=== PATIENT | female | born 1990 | race Caucasian/White ===

== ENCOUNTER 2019-03-09 11:46 | Inpatient (IN) | payer MEDICAID ==
[~2019-03-09 11:46] MED LIST: PRENAT PO
[2019-03-09] MEDS ORDERED: CARBOPROST 250 MCG INJ IM PRN ×2 (12:30→13:30)
[2019-03-09] MEDS ORDERED: LIDOCAINE 1% (MPF) 30 ML INJ INJ PRN (12:30)
[2019-03-09] MEDS ORDERED: OXYTOCIN 30 UNITS/LR 500 ML IV PRN ×2 (12:30→13:30)
[2019-03-09] MEDS ORDERED: OXYTOCIN 30 UNITS/LR 500 ML IV SCH ×3 (12:30→13:17)
[2019-03-09] MEDS ORDERED: METHYLERGONOVINE 0.2 MG INJ IM PRN (12:30)
[2019-03-09] MEDS ORDERED: AMPICILLIN 2 GM/NS (PMX) 100 ML IV ONE (12:30)
[2019-03-09] MEDS ORDERED: MISOPROSTOL 200 MCG TAB PR PRN ×2 (12:30→13:30)
[2019-03-09] MEDS ORDERED: LACTATED RINGER'S 1,000 ML IV SCH (13:00)
--- NOTE | 2019-03-09 13:14 | HP ---
Date/Time of Note Date/Time of Note DATE: 03/09/19 TIME: 13:11 OB - History Hx of Present Free Text/Dictation March 09, 2019 Estimated Due Date: Mar 14, 2019 : 5 Para: 4 Care: Good Care Other Concerns: 28-year-old G5, P4 with IUP at 39 weeks and 1 day and care with [facility] presented in active labor. She was 5 cm dilated/90%/-1 vertex presentation. records were not available. Only labs were available. GBS was negative. She was admitted for management of labor. Past Family/Social History * Past Medical, Surgical, Family and Obstetric Histories reviewed from chart. Blood Type: A+ Rubella: immune RPR/VDRL: Negative GBS Status: Negative HBsAG: Negative OB Admission Exam Physical Exam HEENT: WNL Lungs: Clear Abdomen: WNL Extremities: Normal Cervical Dilatation: 5cm Effacement: 100% Station: -1 Amniotic Fluid: Clear Heart Rate: 130's Accelerations: Accelerations Present Decelerations: No Decelerations Varibility: Moderate Contractions on Admission: < 5 Minutes Apart Intensity: Moderate Last 72 hours Lab Results CBC & BMP 03/09/19 12:15 OB Assessment/Plan Reason for admission: active labor Other Assessment: IUP at 39 weeks and 1 day Active labor GBS negative Admit the patient to labor and delivery Epidural if she requires for pain management Anticipate YANET MORALES MD Mar 09, 2019 13:14
--- NOTE | 2019-03-09 13:17 | LDN ---
Date/Time of Note Date/Time of Note DATE: 03/09/19 TIME: 13:14 Delivery Summary March 09, 2019 Weeks of Gestation 39 weeks and 2 days Placenta Delivered: Spontaneously Meconium: Thick Episiotomy: No Indication for episiotomy N/AA Perineal laceration: 1 Laceration repair: First-degree perineal laceration as well as first-degree laceration superficial at the area of frenulum of clitoris noted. Perineal laceration had some oozing and repaired using 3-0 chromic with one [id number] suture. Laceration and first-degree superficial frenulum of the clitoris was not bleeding and did not require any suturing. Anesthesia type: Local Estimated blood loss: 200 Sponge & Needle done & correct: Yes Any foreign bodies felt in the: No Delivery Information Sex Sex: female Apgars 1 Minute: 9 5 Minute: 9 Suctioning Nose & mouth suctioned at lissett: Yes Delee suction performed: Yes Umbilical Cord Umbilical cord with: 3 Vessels Cord presentations: no nuchal cord Cord Blood was obtained: Yes Mother & Baby Disposition Disposition Placenta delivered intact and complete. Three-vessel cord noted. Fundus was firm at the end of the delivery. First-degree perineal laceration and first- degree superficial laceration at the level of frenulum uppercase was noted that was not bleeding. Perineal laceration repaired using 3-0 suture 1 [id number] ght. Hemostasis was complete. 2+ meconium noted at the time of delivery. Immediately after delivery of the head nose and mouth were suction. Baby was handed to the nursing staff after the second of delivery. YANET NEVAREZ MD Mar 09, 2019 13:17
[2019-03-09] MEDS ORDERED: HYDROCODONE/APAP (5/325) TAB PO PRN (13:30)
[2019-03-09] MEDS ORDERED: morphine 2 MG INJ IV PRN (13:30)
[2019-03-09] MEDS ORDERED: DIPHENHYDRAMINE 25 MG CAP PO PRN (13:30)
[2019-03-09] MEDS ORDERED: ZOLPIDEM 5 MG TAB PO PRN (13:30)
[2019-03-09] MEDS ORDERED: NACL 0.9% 3 ML SYG IV SCH (13:30)
[2019-03-09] MEDS ORDERED: ONDANSETRON 4 MG INJ IV PRN (13:30)
[2019-03-09 14:40] VITALS: BP 107/71; PULSE 60; RESP 17
[2019-03-09] MEDS ORDERED: AMPICILLIN 1 GM/NS (PMX) 50 ML IV SCH (16:30)
[2019-03-09] MEDS: LANOLIN HPA 1 PKT TOP PRN (17:40)
[2019-03-09] MEDS: WITCH HAZEL/GLYCERIN PAD PR PRN (17:40)
[2019-03-09] MEDS: IBUPROFEN 600 MG TAB PO SCH ×2 (17:40→23:30)
[2019-03-09 20:10] VITALS: BP 101/55; PULSE 65; RESP 18
[2019-03-09] MEDS: SENNA/DOCUSATE NA (8.6MG/50MG) TAB PO SCH (22:06)
[2019-03-10 00:40] VITALS: BP 100/56; PULSE 70; RESP 18
[2019-03-10 04:00] VITALS: BP 97/55; PULSE 60; RESP 18
[2019-03-10] MEDS: IBUPROFEN 600 MG TAB PO SCH ×4 (05:52→23:33)
[2019-03-10 09:00] VITALS: BP 108/62; PULSE 59; RESP 16
[2019-03-10] MEDS: PRENATAL VITAMIN PO SCH (10:01)
[2019-03-10] MEDS: SENNA/DOCUSATE NA (8.6MG/50MG) TAB PO SCH ×2 (10:01→21:05)
[2019-03-10 16:30] VITALS: BP 118/74; PULSE 65; RESP 18
[2019-03-10 20:00] VITALS: BP 112/76; PULSE 82; RESP 19
[2019-03-11 03:40] VITALS: BP 97/57; PULSE 63; RESP 19
[2019-03-11] MEDS: IBUPROFEN 600 MG TAB PO SCH ×2 (05:37→11:45)
[2019-03-11 08:37] VITALS: BP 117/57; PULSE 61; RESP 16
[2019-03-11] MEDS ORDERED: VARICELLA VACCINE LIVE/PF 1,350 UNIT/0.5 ML ML SC* ONE (09:00)
[2019-03-11] MEDS ORDERED: MEASLES,MUMPS,RUBELLA VACCINE INJ SC* ONE (09:00)
[2019-03-11] MEDS ORDERED: DIPHTH/TET/ACEL PERTUSS (ADULT) 0.5 ML VIAL IM* ONE (09:00)
[2019-03-11] MEDS: PRENATAL VITAMIN PO SCH (09:15)
[2019-03-11] MEDS: SENNA/DOCUSATE NA (8.6MG/50MG) TAB PO SCH (09:15)
[2019-03-11] MEDS: WITCH HAZEL/GLYCERIN PAD PR PRN (11:49)
[2019-03-11] MEDS: LANOLIN HPA 1 PKT TOP PRN (11:49)
[2019-03-11 16:00] VITALS: BP 120/64; PULSE 68; RESP 17
[2019-03-11] MEDS ORDERED: IBUP-1542 PO (16:22)
--- NOTE | 2019-03-12 17:38 | DELSUM ---
Delivery Summary A-C Datetime Report Generated by CPN: 03/12/2019 17:38 DELIVERY PERSONNEL Furnace Tender: Soleimani, Nettie MATERNAL INFORMATION Delivery Anesthesia: Local Medications in Delivery: 30 UNITS PITOCIN IN 500LR Delivery QBL (ml): 200 Placenta Cultured: No Maternal Complications: None LABOR SUMMARY EDC: 03/14/2019 00:00 No. Babies in Womb: 1 Attempted: No Labor Anesthesia: None LABOR INFORMATION Reason for Induction: Not Applicable Onset of Labor: 03/09/2019 09:00 Complete Dilatation: 03/09/2019 12:35 Group B Beta Strep: Negative Antibiotics # of Doses: 0 Steroids Given: None Reason Steroids Not Administered: Not Applicable MEMBRANES Membranes Rupture Method: Artificial Rupture of Membranes: 03/09/2019 12:37 Length of Rupture (hr): 0.02 Amniotic Fluid Color: Light Meconium Amniotic Fluid Amount: Moderate Amniotic Fluid Odor: None STAGES OF LABOR Stage 1 hr: 3 Stage 1 min: 35 Stage 2 hr: 0 Stage 2 min: 3 Stage 3 hr: 0 Stage 3 min: 2 Total Time in Labor hr: 3 Total Time in Labor min: 40 VAGINAL DELIVERY Episiotomy: None Laceration Extension: First Degree Laceration Type: Perineal Laceration Repair: Yes Initial Vag Sponge Count: 10 Final Vag Sponge Count: 10 Initial Vag Sharps Count: 3 Final Vag Sharps Count: 3 Sponge Count Correct: Yes; Vaginal Sweep Performed Sharps Count Correct: Yes BABY A INFORMATION Infant Delivery Date/Time: 03/09/2019 12:38 Method of Delivery: Vaginal Born in Route : No : N/A Forceps: N/A Vacuum Extraction: N/A Shoulder Dystocia : N/A SHOULDER DYSTOCIA BABY A Infant Delivery Date/Time: 03/09/2019 12:38 PRESENTATION/POSITION BABY A Presentation: Cephalic Cephalic Presentation: Vertex Vertex Position: Left Occipital Posterior Breech Presentation: N/A PLACENTA INFORMATION BABY A Placenta Delivery Time : 03/09/2019 12:40 Placenta Method of Delivery: Spontaneous Placenta Status: Delivered SCORES BABY A Heart Rate 1 min: >100 bpm Resp Effort 1 min: Good Cry Reflex Irritability 1 min: Cough/Sneeze/Pulls Away Muscle Tone 1 min: Active Motion Color 1 min: Body Finklea, Extremit Blue Resuscitation Effort 1 min: Tactile Stimulation SCORE 1 MIN: 9 Heart Rate 5 min: >100 bpm Resp Effort 5 min: Good Cry Reflex Irritability 5 min: Cough/Sneeze/Pulls Away Muscle Tone 5 min: Active Motion Color 5 min: Body Finklea, Extremit Blue SCORE 5 MIN: 9 INFANT INFORMATION BABY A Gestational Age at Delivery: 39.3 Gestational Status: Full Term- 39- 40.6 Weeks Outcome : Liveborn, with signs of life Condition : Stable Infant Sex: Female IDENTIFICATION/MEDS BABY A ID Band Number: [id number] ID Band Location: Right Leg; Left Arm Sensor Applied: Yes Sensor Number: [id number] Sensor Location : Cord Clamp Vitamin K Given : Not Given Erythromycin Given: Not Given WEIGHT/LENGTH BABY A Infant Birthweight (gm): 3490 Infant Weight (lb): 7 Weight (oz): 11 Infant Length (in): 19.00 Length (cm): 48.26 CORD INFORMATION BABY A No. Cord Vessels: 3 Nuchal Cord : N/A Cord Blood Taken: Yes Suction: Mouth ASSESSMENT BABY A Infant Complications: None Physical Findings at Delivery: Within Normal Limits Respirations: Appears Normal Recruiting Consultant/ALS Called : No Transferred To: Remains with Mother
== END 2019-03-11 17:38 | disposition home or self-care (01) | DRG 807 ==
LOC: OBT 11:46 → L-D 11:48 → OBT 11:56 → L-D 11:59 → PP1 14:48
PROVIDERS: ADMIT Obstetrics & Gynecology; ATTEND Obstetrics & Gynecology
PROC: 10E0XZZ Delivery of Products of Conception, External Approach (ICD-10-PCS; principal; 2019-03-09)
PROC: 0HQ9XZZ Repair Perineum Skin, External Approach (ICD-10-PCS; 2019-03-09)
DX: O70.0 First degree perineal laceration during delivery (principal); Z37.0 Single live birth; O71.89 Other specified obstetric trauma; Z3A.39 39 weeks gestation of pregnancy
CPT/HCPCS: 85025; 85610; 85730; 86592; 86762; 86850; 86900; 86901; 87340; 90715; 90716; G0463; J2590; J7120